=== PATIENT | female | born 1950 | race Caucasian/White ===

== ENCOUNTER → 2024-06-15 09:00 | Outpatient (REF) | payer MEDICARE, SELFPAY | LOC: RAD 09:00 | PROVIDERS: ATTENDING PHYSICIAN Specialist; FAMILY PHYSICIAN Family Medicine | DX: R31.9 Hematuria, unspecified (principal) | CPT/HCPCS: 76770 ==

== ENCOUNTER → 2025-02-19 10:16 | Outpatient (REF) | payer MEDICARE, SELFPAY | LOC: WDC 10:16 | PROVIDERS: ATTENDING PHYSICIAN Family Medicine | DX: Z12.31 Encounter for screening mammogram for malignant neoplasm of breast (principal); M85.89 Other specified disorders of bone density and structure, multiple sites | CPT/HCPCS: 77063; 77067; 77080 ==